=== PATIENT | male | born 1955 | race Caucasian/White ===

== ENCOUNTER 2022-08-20 21:52 | Emergency (ER) | payer BC, MEDICARE, OTHER ==
[2022-08-20] MEDS ORDERED: Fleet Enema 133 ML BOT ONE (23:19)
[2022-08-20] MEDS ORDERED: Mineral Oil ENEMA ONE (23:20)
== END 2022-08-21 01:20 | disposition home or self-care (01) ==
LOC: MADERS 21:52
DX: K56.41 Fecal impaction (principal); E03.9 Hypothyroidism, unspecified; Z79.899 Other long term (current) drug therapy
CPT/HCPCS: 99283